=== PATIENT | male | born 1955 | race Asian ===

== ENCOUNTER 2019-01-30 16:07 | Emergency (ER) | payer OTHER ==
[~2019-01-30] VITALS: Ht 172.7 cm; Wt 73.0 kg
[2019-01-30 16:17] VITALS: Ht 172.7 cm; Wt 73.0 kg
[2019-01-30 19:13] VITALS: BP 117/70
== END 2019-01-30 19:13 | disposition home or self-care (01) ==
LOC: ED 16:07
DX: S22.32XA Fracture of one rib, left side, initial encounter for closed fracture (principal); S40.012A Contusion of left shoulder, initial encounter; S50.01XA Contusion of right elbow, initial encounter; V13.4XXA Pedal cycle driver injured in collision with car, pick-up truck or van in traffic accident, initial encounter; Y93.I9 Activity, other involving external motion; Y92.413 State road as the place of occurrence of the external cause; Y99.8 Other external cause status
CPT/HCPCS: J1885

== ENCOUNTER → 2019-02-07 | Outpatient (CLI) | payer OTHER ==
[2019-02-07 08:46] LABS: BASOPHIL % 0.7 % (0-2); PLATELET COUNT 232 x10^3mcL (130-400); RED CELL DISTRIBUTION WIDTH 13.4 % (11.5-14.5)
[2019-02-07 08:49] LABS: microscopic required? NO
[2019-02-07 08:52] LABS: urine erythrocyte NEGATIVE (NEGATIVE)
[2019-02-07 09:43] LABS: ALBUMIN 3.6 g/dL (3.4-5.0); ALKALINE PHOSPHATASE 55 U/L (46-116); ALT/SGPT 30 U/L (16-63); AST/SGOT 24 U/L (15-37); CALCIUM 8.6 mg/dL (8.5-10.1); CARBON DIOXIDE 29.7 mmol/L (21-32); CHLORIDE SERUM 102 mmol/L (98-107); CHOLESTEROL 183 mg/dL (<200); GFR1 > 60 mL/min; GLUCOSE SERUM 101 mg/dL (74-106); POTASSIUM SERUM 4.2 mmol/L (3.5-5.1); SODIUM SERUM 138 mmol/L (136-145); TOTAL PROTEIN, SERUM 6.9 g/dL (6.4-8.2); TRIGLYCERIDES 67 mg/dL (<150)
[2019-02-07 09:57] LABS: CHOLESTEROL/HDL RATIO 2.1; HDL CHOLESTEROL 87 mg/dL (40-60)
== END | disposition home or self-care (01) ==
LOC: LB 08:14
PROVIDERS: Preventive Medicine Preventive Medicine/Occupational Environmental Medicine
DX: Z00.00 Encounter for general adult medical examination without abnormal findings (principal); S22.32XA Fracture of one rib, left side, initial encounter for closed fracture; X58.XXXA Exposure to other specified factors, initial encounter; Y92.9 Unspecified place or not applicable
CPT/HCPCS: 84153